=== PATIENT | female | born 1960 | race Caucasian/White ===

== ENCOUNTER 2016-08-08 11:32 | Day surgery (SDC) | payer OTHER ==
[~2016-08-08] VITALS: Ht 170.2 cm; Wt 113.4 kg
[~2016-08-08 11:32] MED LIST: 0.9% Sodium Chloride 1,000 ML IV SCH; FLUT16SP NS; MELO-253 PO; PRO20 PO; SYN.112T PO; Sodium Chloride LOK Flush 10 mL Syringe IV PRN; fentaNYL-PF 50 mCg/mL 2 mL Inj IVPUSH PRN
[2016-08-08 11:58] VITALS: BP 128/85; PULSE 96; RESP 17; O2SAT 96
[2016-08-08] MEDS ORDERED: 0.9% Sodium Chloride 1,000 ML IV ONE (12:37)
[2016-08-08 12:50] VITALS: BP 126/80; PULSE 88; RESP 16; O2SAT 96
[2016-08-08 13:04] VITALS: BP 127/78; PULSE 94; RESP 14; O2SAT 95
[2016-08-08 13:05] VITALS: BP 112/74; PULSE 88; RESP 14; O2SAT 94
--- NOTE | 2016-08-08 23:14 | ENDO ---
[address] [address] ENDOSCOPY PROCEDURE PATIENT: AFSHIN NEIL : 1960 MR#: [id number] ADMIT: 08/08/2016 JOB ID: [id number] PROCEDURES: 1. Colonoscopy. 2. Hot-snare polypectomy. 3. Cold-snare polypectomy. INDICATIONS: A 55-year-old female with a family history of colon cancer and a personal history of colon polyps returning for surveillance. EQUIPMENT: [employer]. SEDATION: Versed 6 mg and 100 mcg fentanyl. COMPLICATIONS: None identified. BOWEL PREPARATION: Fair, adequate exam. PROCEDURE IN DETAIL: After the risks and benefits were explained, written and verbal informed consent was obtained, the patient was brought into the endoscopy suite and placed into the left lateral decubitus position. Sedation was achieved using the above-stated medications with the addition of oxygen via nasal cannula. A digital rectal examination accomplished. Mild internal hemorrhoids noted. The scope was introduced into the rectum and advanced under direct visualization to the level of the cecum, as identified by the appendiceal orifice and ileocecal valve. The scope was slowly withdrawn to carefully examine the mucosa for any defects or lesions. Multiple direct views were made through the dentate line for exclusion of pathology. The colon was decompressed. The scope removed the patient who tolerated the procedure well. FINDINGS: The patient had some mild diverticulosis in the left colon. In the transverse, there were a couple of polyps seen and removed. One of these was perhaps 6 mm, the smaller 4-5 mm. We used hot snare for the larger and cold snare for the smaller of the two. The patient had some mild internal hemorrhoids noted on direct views. No other pathology appreciated throughout. ENDOSCOPIC DIAGNOSES: 1. Colon polyps. 2. Diverticulosis. 3. Hemorrhoids. RECOMMENDATIONS: 1. Await histopathology. 2. Repeat colonoscopy in five years.
--- NOTE | 2016-08-12 10:08 | PATH ---
SURGICAL PATHOLOGY Attending Physician:Christopher Jospeh CASE STATUS: Signed Out PATIENT NAME: AFSHIN NEIL PID: [id number] : 1960 DATE COLLECTED:08/08/2016 20:10 SPECIMEN: Colon, Biopsy CLINICAL HISTORY: 1). 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 ICD10 CODE D12.6 GROSS DESCRIPTION: The specimen is received in one formalin filled container labeled with the patient's name, sublabeled "colon polyps" and consists of multiple portions of tissue which aggregate to 0.5 x 0.5 x 0.2 CM. The specimen is entirely submitted in one cassette. 08/08/2016 DAC MICRO DESCRIPTION: See diagnosis. ICD-9 CODES: CPT CODES: 1: 79430 Electronically Signed Out Jermaine Donaldson MD [facility] Pathology [facility] [address], [place] [address] Technical component performed at [facility], [facility] [address], [place], [address]
== END 2016-08-08 23:59 | disposition home or self-care (01) ==
LOC: END 11:32
PROVIDERS: ATTEND Internal Medicine Gastroenterology
DX: Z12.11 Encounter for screening for malignant neoplasm of colon (principal); Z86.010 Personal history of colon polyps; D12.3 Benign neoplasm of transverse colon; K57.30 Diverticulosis of large intestine without perforation or abscess without bleeding; K64.8 Other hemorrhoids
CPT/HCPCS: 45385; 99153; G0500; J2250; J3010; J7030